=== PATIENT | male | born 1965 | race African-American/Black ===

== ENCOUNTER 2019-04-24 18:45 | Emergency (ER) | payer MEDICAID ==
[2019-04-24] MEDS ORDERED: Sodium Chloride 0.9% 1,000 ML IV ONE (18:55)
--- NOTE | 2019-04-24 19:01 | ED Physician Chart ---
ED Chief Complaint/HPI - Patient Information Date Seen:: 04/24/19 Time Seen:: 18:45 Chief Complaint:: hematemesis History of Present Illness:: Patient stated he vomited a large amount of blood in the parking lot of a [employer]. He has had epigastric pain intermittently for 7-8 years. Patient recurred last night. According to the EMT who transported the patient, he, another EMT and a fire ranger searched the parking lot for 5 minutes and could not find any blood. Patient also complains of chest pain , leg pain and diffuse myalgias. Patient states he's had many prior episodes of hematemesis. Allergies:: Allergies Allergy/AdvReac Type Severity Reaction Status Date / Time No Known Allergies Allergy Verified 04/24/19 18:50 Historian:: Patient, EMS Review:: Nurse's Note Reviewed ED Review of Systems - Review of Systems General/Constitutional: No fever, No chills Skin: No skin lesions Head: No headache Eyes: No loss of vision ENT: No earache Neck: No neck pain Cardio Vascular: No chest pain GI: Nausea, Vomiting, Pain, Hematemesis G/U: No dysuria Musculoskeletal: No bone or joint pain Endocrine: No polyuria Psychiatric: Prior psych history Hematopoietic: No bruising Allergic/Immuno: No urticaria Neurological: No syncope, No focal symptoms ED Past Medical History - Past Medical History Past Medical History: Other (schizophrenia; patient states he hears voices) Family History: Other (peptic ulcer disease) Social History: Smoker, Alcohol, Other Employment:: Smokes about 10 cigarettes a day and drinks a lot of beer the quantity of which he declined to specify Surgical History: other (EGD) Psychiatricy History: Schizophrenia Medication: Reviewed ED Physical Exam - Physical Examination General/Constitutional: Awake, Well-developed, well-nourished, Alert, No distress Other Gen/Cons comments:: Patient asked twice for something to eat Head: Atraumatic Eyes: Lids, conjuctiva normal, PERRL Skin: Nl inspection, No rash, No skin lesions, No ecchymosis ENMT: External ears, nose nl Other ENMT comments:: 3/4 poor dental hygiene Neck: No nuchal rigidity Respiratory: Nl effort/Exclusion, Clear to Auscultation, No Wheeze/Rhonchi/Rales Cardio Vascular: RRR GI: No organomegaly, No hernia, Normal BS's, Nondistended, No mass/bruits Other GI comments:: Diffuse abdominal tenderness without guarding : No CVA tenderness Extremities: No edema Neuro/Psych: No focal deficits ED Labs/Radiology/EKG Results - Lab Results Results: Laboratory Results WBC 3.9 Th/cmm (4.8-10.8) L 04/24/19 18:50 RBC 4.05 Mil/cmm (4.30-5.70) L 04/24/19 18:50 Hgb 12.0 gm/dL (12-16) 04/24/19 18:50 Hct 35.6 % (41.0-60) L 04/24/19 18:50 MCV 88.0 fl (80-99) 04/24/19 18:50 MCH 29.8 pg (26.0-30.0) 04/24/19 18:50 MCHC Differential 33.8 pg (28.0-36.0) 04/24/19 18:50 RDW 14.6 % (11.5-20.0) 04/24/19 18:50 Plt Count 199 Th/cmm (150-400) 04/24/19 18:50 MPV 7.4 fl 04/24/19 18:50 Neutrophils % 54.5 % (40.0-80.0) 04/24/19 18:50 Lymphocytes % 33.8 % (20.0-50.0) 04/24/19 18:50 Monocytes % 8.8 % (2.0-10.0) 04/24/19 18:50 Eosinophils % 2.6 % (0.0-5.0) 04/24/19 18:50 Basophils % 0.3 % (0.0-2.0) 04/24/19 18:50 PT 10.5 SECONDS (9.5-11.5) 04/24/19 18:50 INR 1.01 (0.5-1.4) 04/24/19 18:50 PTT (Actin FS) 27.4 SECONDS (26.0-38.0) 04/24/19 18:50 Sodium 140 mEq/L (136-145) 04/24/19 18:50 Potassium 3.9 mEq/L (3.5-5.1) 04/24/19 18:50 Chloride 106 mEq/L (98-107) 04/24/19 18:50 Carbon Dioxide 27.5 mEq/L (21.0-31.0) 04/24/19 18:50 Anion Gap 10.4 (7.0-16.0) 04/24/19 18:50 BUN 16 mg/dL (7-25) 04/24/19 18:50 Creatinine 1.2 mg/dL (0.7-1.3) 04/24/19 18:50 Est GFR ( Amer) > 60.0 ml/min (>90) 04/24/19 18:50 Est GFR (Non-Af Amer) > 60.0 ml/min 04/24/19 18:50 BUN/Creatinine Ratio 13.3 04/24/19 18:50 Glucose 140 mg/dL (70-105) H 04/24/19 18:50 Whole Bld Lactic Acid 1.52 mmol/L (0.60-1.99) 04/24/19 18:50 Calcium 9.1 mg/dL (8.6-10.3) 04/24/19 18:50 Magnesium 1.9 mg/dL (1.9-2.7) 04/24/19 18:50 Lipase 15 U/L (11-82) 04/24/19 18:50 ED Assessment - Assessment General Assessment: There is no objective evidence patient had hematemesis tonight. Patient does have mild anemia. Patient refused an EKG. Patient requested something to eat twice so will be given food and then discharged ED Septic Shock - . Is Septic Shock (SBP<90, OR Lactate>4 mmol\L) present?: No ED Reassessment (Disposition) - Reassessment Reassessment Condition:: Unchanged - Diagnosis Diagnosis:: Anemia - Aftercare/Follow up Instructions Aftercare/Follow-Up Instructions:: Refer to Discharge Instructions - Patient Disposition Discharge/Transfer:: Home Condition at Disposition:: Stable, Unchanged
[2019-04-24 19:15] LABS: % BASOPHILS 0.3 % (0.0-2.0); % EOSINOPHILS 2.6 % (0.0-5.0); % LYMPHOCYTES 33.8 % (20.0-50.0); % MONOCYTES 8.8 % (2.0-10.0); % NEUTROPHILS 54.5 % (40.0-80.0); EOSINOPHILE ABSOLUTE 0.1 Th/cmm (0.1-0.4); HEMATOCRIT 35.6 % (41.0-60); LYMPHOCYTE ABSOLUTE 1.3 Th/cmm (1.5-3.0); MEAN CORPUSCULAR HEMOGLOBIN 29.8 pg (26.0-30.0); MEAN CORPUSCULAR HGB CONC 33.8 pg (28.0-36.0); MONOCYTE ABSOLUTE 0.3 Th/cmm (0.3-1.0); NEUTROPHILE ABSOLUTE 2.2 Th/cmm (1.8-8.0); PLATELET COUNT 199 Th/cmm (150-400); RED BLOOD COUNT 4.05 Mil/cmm (4.30-5.70); RED CELL DISTRIBUTION WIDTH 14.6 % (11.5-20.0)
[2019-04-24 19:20] LABS: INR 1.01 (0.5-1.4); WHITE BLOOD COUNT 3.9 Th/cmm (4.8-10.8)
[2019-04-24 19:24] LABS: ANION GAP 10.4 (7.0-16.0); BUN - UREA NITROGEN 16 mg/dL (7-25); CALCIUM SERUM 9.1 mg/dL (8.6-10.3); CARBON DIOXIDE 27.5 mEq/L (21.0-31.0); CHLORIDE 106 mEq/L (98-107); CREATININE - SERUM 1.2 mg/dL (0.7-1.3); GFR AFRICAN-AMERICAN > 60.0 ml/min (>90); GFR NON AFRICAN-AMERICAN > 60.0 ml/min; GLUCOSE 140 mg/dL (70-105); LIPASE 15 U/L (11-82); MAGNESIUM 1.9 mg/dL (1.9-2.7); POTASSIUM SERUM 3.9 mEq/L (3.5-5.1); SODIUM SERUM 140 mEq/L (136-145)
== END 2019-04-24 22:25 | disposition home or self-care (01) ==
LOC: ER 18:45
DX: D64.9 Anemia, unspecified (principal); R10.84 Generalized abdominal pain; F20.9 Schizophrenia, unspecified; F17.210 Nicotine dependence, cigarettes, uncomplicated
CPT/HCPCS: 36415-UA; 80048-TC; 83605; 83690-TC; 83735-TC; 85025-TC; 85610-TC; 85730-TC; J7030; Z7502